=== PATIENT | male | born 1995 | race Caucasian/White ===

== ENCOUNTER → 2020-12-06 08:57 | Outpatient (BNVA) | payer BC, SELFPAY | PROVIDERS: PCP Internal Medicine; Visit Provider Surgery ==

== ENCOUNTER 2020-12-12 06:18 | Day surgery (SDC) | payer BC, SELFPAY ==
[2020-12-12 06:29] VITALS: BMI 21.2
[2020-12-12 06:36] VITALS: BP 122/72; PULSE 79; RESP 16; TEMP 36.9; O2SAT 100
[2020-12-12] MEDS: Lactated Ringers 1,000 ML 100 ML IVCONT (06:48)
--- NOTE | 2020-12-12 07:12 | P.CONAN_ITS ---
FORM[facility]LY [facility], LATER [facility] Active Problems Active Problems: All Active Problems (Updated 12/06/20 @ 09:21 by Yury vieira MD) Lipoma (Acute) Family History Family history of problems with anesthesia: No Surgical History History of Problems with Anesthesia: No Social History Social History Alcohol intake: current Smoking Status: Never smoker Use of substances other than those prescribed or required for medical reasons: No Advance Directives: No Advance Directives Information Provided: Yes Recently lost weight without trying: No Meds Allergies Allergy/AdvReac Type Severity Reaction Status Date / Time No Known Allergies Allergy Verified 12/12/20 06:28 Active Medications: Current Medications Generic Name Dose Route Start Last Admin Trade Name Freq PRN Reason Stop Dose Admin Lactated Ringer's 1,000 mls @ 100 mls/hr 12/12/20 06:30 12/12/20 06:48 Lr IVCONT 100 mls/hr .Q10H PACO Administration Home Medications Medication Instructions Recorded Confirmed Last Taken Type No Known Home Meds 12/06/20 12/06/20 Unknown History Exam Exam Date and Time: December 12, 2020 0712 Height,Weight and Vital Signs: Height 5 ft 8 in Weight 63.503 kg Last Vital Signs Temp 98.4 F 12/12/20 06:36 Pulse 79 12/12/20 06:36 Resp 16 12/12/20 06:36 BP 122/72 12/12/20 06:36 Pulse Ox 100 12/12/20 06:36 Airway Mallampati Class: II TM Dist: >3cm Neck ROM: Full Heart: RRR Lungs: CTAB Assessment and Plan Assessment Anesthesia Assessment: Anesthesia Plan Discussed and Chart Reviewed Final Anesthetic Review NPO: Yes ASA Class: I Final Preanesthetic Review: No Changes in Pt Med Stat, Meds/Allgs Chart Reviewed, Consent Obtained/Reviewed and Anes Risks/Benef Reviewed Patient Risk: Low Procedure Risk: Low Assessment/Block/Sedation in SS: Assess/Block/Sedation-SS Anesthetic Plan Anesthetic Plan: GA Disposition: Standard PACU
--- NOTE | 2020-12-12 07:17 | MHC.SHP ---
Pre-Procedural Eval Section A The patient is an INPATIENT: No Changes since office visit: Yes Patient answered all questions; No Cold of Flu in the past 2 weeks, No New Medical Problems and No Changes in Medication The History & Physical has been completed within 30 days and I have reviewed it.: Yes Section B Chief Complaint: Lipoma Allergies: Allergies Allergy/AdvReac Type Severity Reaction Status Date / Time No Known Allergies Allergy Verified 12/12/20 06:28 Plan Diagnosis/Plan: Unchanged I have reviewed the history and physical and performed a pertinent physical examination on my patient. No changes have occurred unless specified.
--- NOTE | 2020-12-12 07:18 | W.PM.OPN ---
Operative Note Operative Note Date of Service: 12/12/20 Narrative: Preoperative diagnosis: Lipoma left lower back Postoperative diagnosis: Same Procedure: Excision of lipoma left lower back Surgeon: Yury Quigley MD Project Control Analyst: None Anesthesia: General LMA Indications for procedure: 25-year-old male patient presenting with a soft tissue mass on examination in the left lower back. The patient reports pain associated with the lesion is requested excision. Operative findings: Lipoma located deep to the muscle fascia in the left lower back measuring approximately 3 cm in diameter Specimen: Lipoma left lower back Estimated blood loss: 5 mL Complications: None Procedure details: Patient was brought to the OR and placed in a supine position. After administering general anesthesia the patient was rotated to a right lateral decubitus position. The patient's left lower back was prepped with ChloraPrep and draped in a sterile fashion. A surgical time-out was called and the consent confirmed. Patient received preoperative antibiotics and Venodyne boots were in place. Local anesthesia consisting of 0.5% Sensorcaine with epinephrine was infiltrated around the lipoma. A transverse incision was then made with scalpel carried out through subcutaneous tissue and up to the outer surface of the lipoma. This was located below the muscle fascia. A combination of sharp and blunt dissection was then used to dissect the lipoma free from the surrounding subcutaneous and muscular tissue. Hemostasis assured using electrocautery. The specimen was removed and sent to pathology for further examination. The incision was irrigated with saline solution and suctioned dry. Wounds were again checked for hemostasis. Deep muscular fascia was closed using interrupted 3-0 Polysorb sutures. Jesus Manuel's fascia and dermis reapproximated using interrupted 3-0 Polysorb sutures. Skin was then closed using a running subcuticular 4 0 Polysorb suture. Steri-Strips 2 x 2 gauze and Tegaderm were then applied. The patient tolerated the procedure well. Sponge, instrument, and needle counts were reported as correct. He was transported to PACU in stable condition.
[2020-12-12 08:25] VITALS: BP 129/68; PULSE 88; RESP 16; TEMP 37.1; O2SAT 100
[2020-12-12 08:30] VITALS: BP 110/43; PULSE 86; RESP 16; O2SAT 99
[2020-12-12 08:35] VITALS: BP 124/70; PULSE 83; RESP 16; O2SAT 99
[2020-12-12 08:40] VITALS: BP 130/58; PULSE 76; RESP 16; O2SAT 98
[2020-12-12 08:55] VITALS: BP 109/62; PULSE 92; RESP 16; TEMP 36.6; O2SAT 99
== END 2020-12-12 09:19 | disposition home or self-care (01) ==
PROVIDERS: PCP Internal Medicine; Visit Provider Surgery
PROC: (CPT 21932; principal; 2020-12-12 07:30)
DX: D17.9 Benign lipomatous neoplasm, unspecified (principal)
CPT/HCPCS: 21932; 88304; J0690; J1100; J1885; J2250; J2405; J3010

== ENCOUNTER → 2020-12-20 13:59 | Outpatient (BNVA) | payer BC, SELFPAY | PROVIDERS: PCP Internal Medicine; Visit Provider Surgery ==